=== PATIENT | male | born 1955 | race African-American/Black ===

== ENCOUNTER 2022-11-07 12:22 | Emergency (ER) | payer OTHER ==
[2022-11-07] MEDS ORDERED: cefTRIAXone\\ROCEPHIN 1 GM VIAL ONE (13:18)
[2022-11-07 13:31] LABS: #Basophils 0.1 10x3/uL (0.0-0.2); #Eosinphils 0.1 10x3/uL (0.0-0.5); #Monocytes 1.4 10x3/uL (0.0-1.1); #Neutrophils 5.7 10x3/uL (1.5-8.4); %Basophils 0.6 % (0.0-2.0); %Eosinophils 1.6 % (0.0-6.0); %Lymphocytes 10.1 % (18.0-47.0); %Monocytes 16.7 % (0.0-10.0); %Neutrophils 69.1 % (40.0-75.0); Hemoglobin 10.8 g/dL (13.5-17.5); Mean Corpuscular HGB CONC 33.2 g/dL (32.0-36.0); Mean Corpuscular Hemoglobin 28.1 pg (27.0-33.0); Mean Corpuscular Volume 84.6 fl (81.2-95.1); Mean Platelet Volume 9.5 fl (7.4-10.4); Platelet Count 396 10x3/uL (150-450); RBC Distribution Width 13.3 % (11.5-14.5); Red Blood Cell (RBC) Count 3.84 10x6/uL (4.32-5.72); White Blood Cell (WBC) Count 8.2 10x3/uL (3.5-10.5)
[2022-11-07 13:44] LABS: ALT (SGPT) 48 U/L (8-55); AST (SGOT) 76 U/L (5-34); Albumin 3.1 g/dL (3.4-4.8); Alkaline Phosphatase 69 U/L (40-110); Anion Gap 16 mmol/L (10-20); BUN (Urea Nitrogen) 56 mg/dL (8.4-25.7); Bilirubin, Total 0.5 mg/dL (0.2-1.2); Calc. Creatinine Clearance 0 mL/min (70-130); Calcium 8.4 mg/dL (7.8-10.44); Carbon Dioxide 25 mmol/L (23-31); Chloride 105 mmol/L (98-107); Estimated GFR 31; Globulin 4.7 g/dL (2.4-3.5); Glucose 101 mg/dL (80-115); Potassium 4.2 mmol/L (3.5-5.1); Protein, Total 7.8 g/dL (5.8-8.1); Sodium 142 mmol/L (136-145)
[2022-11-07] MEDS ORDERED: VANCOMYCIN 2 GRAM/400 ML BAG 2 GM in Premix Bag 1 BAG IVPB SCH (13:45)
[2022-11-07 14:00] LABS: SARS-CoV-2 NAA Rapid Test Not Detected (NotDetected)
== END 2022-11-07 19:24 | disposition short-term general hospital (02) ==
LOC: CSHERS 12:22 → EEVIPCON 12:22 → CSHERS 19:24
DX: L03.90 Cellulitis, unspecified (principal); I10 Essential (primary) hypertension; Z20.822 Contact with and (suspected) exposure to COVID-19
CPT/HCPCS: 36415; 80053; 83605; 85025; 87040; 93005; 96365; 96366; 96367; J0696; J3370; U0002